=== PATIENT | female | born 1985 | race Caucasian/White ===

== ENCOUNTER 2022-04-15 06:26 | Day surgery (SDC) | payer BC, SELFPAY ==
[2022-04-15] VITALS (12 sets, daily range): BP systolic 111–129; BP diastolic 70–89; PULSE 56–93; RESP 14–16; TEMP 36.4–36.9; O2SAT 96–100; BMI 27.3
--- NOTE | 2022-04-15 06:39 | SUR.PREOP ---
HOME COVID TEST NEGATIVE.
[2022-04-15 06:44] LABS: Ur HCG Qualitative* Negative (Negative)
[2022-04-15] MEDS: SODIUM CHLORIDE 0.9 % (FLUSH) 10 ML SYRINGE IVF (06:50)
[2022-04-15] MEDS: LACTATED RINGERS 1000 ML 1,000 ML 100 ML IV (06:50)
--- NOTE | 2022-04-15 07:13 | W.ANESCHARGE ---
Anesthesia Charges Start Date/Time Anesthesia Start Date: 04/15/22 Anesthesia Start Time: 07:39 Stop Date/Time Anesthesia Stop Date: 04/15/22 Anesthesia Stop Time: 08:45
[2022-04-15] MEDS: BUPIVACAINE 0.25% 30 ML 10 ML INJECTION (08:23)
--- NOTE | 2022-04-15 08:32 | W.PM.GYNPROC ---
Procedure Note Date Seen: 04/15/22 Procedure Details: PREOPERATIVE DIAGNOSES: 1. Undesired fertility. POSTOPERATIVE DIAGNOSES: 1. Undesired fertility. PROCEDURE: 1. Laparoscopic bilateral salpingectomies. SURGEON: Pau ANESTHESIA: General endotracheal. COMPLICATIONS: None. ESTIMATED BLOOD LOSS: Less than 10 mL. FINDINGS: Normal-appearing uterus, fallopian tubes bilaterally, and ovaries bilaterally. DESCRIPTION OF PROCEDURE: After obtaining informed consent, the patient was taken to the operating room where general anesthesia was obtained without difficulty. She was prepared and draped in the normal sterile fashion in the low dorsal lithotomy position. A Prieto catheter was inserted into the bladder and left to gravity drainage. A medium Graves open-sided speculum was introduced into the vagina. The cervix was visualized and grasped along its anterior lip with a single-tooth tenaculum. A [employer] uterine manipulator was placed without difficulty. The tenaculum and speculum were removed. I then changed gloves and my attention was turned to the abdomen. The inferior aspect of the umbilical fold was injected with 0.25% Marcaine plain. A 5 mm vertical incision was then made within the umbilical fold using a scalpel. The subcutaneous tissues were bluntly dissected with a Belinda clamp to the fascia. A direct entry technique was used to place a 5 mm laparoscopic port with CO2 gas set to a 5 mmHg. The trocar was removed leaving the sleeve in place. The CO2 gas flow was turned to high flow to achieve pneumoperitoneum. The 5 mm laparoscope was used then to carefully inspect the abdomen and pelvis with findings noted above. Pictures were taken for documentation purposes. The patient was placed in Trendelenburg positioning. Two additional 5 mm port were placed in the right and left lower quadrants under direct visualization after first anesthetizing the skin and fascia with 0.25% Marcaine plain. The uterus was elevated using the uterine manipulator. The bowels were gently pushed from the pelvis cephalad. The fallopian tubes were then each identified to the fimbrial ends, elevated and dissected from their ovarian, broad ligament and cornual attachments using the [employer] Powerse[employer]. Excellent hemostasis was visualized. All instruments were then removed under direct visualization. Pneumoperitoneum was allowed to escape. The skin at all 3 port sites was closed in a subcuticular fashion with 4-0 Vicryl. Surgical glue was then placed over the incisions. The uterine manipulator and Prieto catheter were removed. The patient tolerated the procedure well. Sponge, lap, and needle counts were correct x2. The patient was taken to the recovery room awake and in stable condition.
--- NOTE | 2022-04-15 08:49 | W.ANESCHARGE ---
Anesthesia Charges Start Date/Time Anesthesia Start Date: 04/15/22 Anesthesia Start Time: 07:39 Stop Date/Time Anesthesia Stop Date: 04/15/22 Anesthesia Stop Time: 08:45
[2022-04-15] MEDS: HYDROCODONE/ACETAMIN 7.5-325 TABLET 1 TAB PO (09:56)
== END 2022-04-15 10:05 | disposition home or self-care (01) ==
PROVIDERS: PCP Family Medicine; Visit Provider Obstetrics & Gynecology
PROC: (CPT 58661; principal; 2022-04-15 07:15)
DX: Z30.2 Encounter for sterilization (principal)
CPT/HCPCS: 58661; 00851; 81025; 88302; A9270; J0330; J1100; J1885; J2250; J2405; J2704; J3010; J3490; J7120